=== PATIENT | male | born 1940 | race Caucasian/White ===

== ENCOUNTER 2019-01-27 06:59 | Emergency (ER) | payer MEDICARE ==
[~2019-01-27] VITALS: Ht 190.5 cm; Wt 97.5 kg
[~2019-01-27 06:59] MED LIST: ADULT LOW DOSE81 MG; NOHOMEMEDICATIONS; PERCOCET 5-3251 EACH PO; VERAPAMIL E.R240 M1
[2019-01-27 07:03] VITALS: BP 231/96
[2019-01-27] MEDS ORDERED: FLOMAX0.4 MG PO (07:05)
== END 2019-01-27 07:30 | disposition home or self-care (01) ==
LOC: M.ERS 06:59
DX: S01.81XA Laceration without foreign body of other part of head, initial encounter (principal); I10 Essential (primary) hypertension; Z90.49 Acquired absence of other specified parts of digestive tract; W06.XXXA Fall from bed, initial encounter; Y92.89 Other specified places as the place of occurrence of the external cause; Y93.89 Activity, other specified; Y99.8 Other external cause status

== ENCOUNTER → 2019-06-24 | Outpatient (CLI) | payer MEDICARE ==
[~2019-06-24] MED LIST changes: +FLOMAX0.4 MG PO
== END ==
LOC: M.RAD 08:56
DX: M19.011 Primary osteoarthritis, right shoulder (principal); M19.042 Primary osteoarthritis, left hand

== ENCOUNTER → 2020-01-06 | Outpatient (CLI) | payer MEDICARE | LOC: M.RAD 09:31 | PROVIDERS: ATTEND Internal Medicine | DX: M47.816 Spondylosis without myelopathy or radiculopathy, lumbar region (principal); M54.41 Lumbago with sciatica, right side; G89.29 Other chronic pain; M53.3 Sacrococcygeal disorders, not elsewhere classified; M25.78 Osteophyte, vertebrae; M41.86 Other forms of scoliosis, lumbar region; R29.890 Loss of height ==

== ENCOUNTER → 2020-04-02 | Outpatient (CLI) | payer MEDICARE | LOC: M.RAD 11:14 | PROVIDERS: ATTEND Internal Medicine | DX: J01.01 Acute recurrent maxillary sinusitis (principal) ==

== ENCOUNTER → 2020-04-22 | Outpatient (CLI) | payer MEDICARE | LOC: M.CT 07:35 | PROVIDERS: ATTEND Internal Medicine | DX: G43.C1 Periodic headache syndromes in child or adult, intractable (principal); R90.82 White matter disease, unspecified ==

== ENCOUNTER → 2021-01-25 | Outpatient (CLI) | payer MEDICARE | LOC: M.ULTRA 07:20 | PROVIDERS: ATTEND Internal Medicine | DX: R09.89 Other specified symptoms and signs involving the circulatory and respiratory systems (principal); R42 Dizziness and giddiness ==